=== PATIENT | male | born 1935 ===

== ENCOUNTER 2018-03-01 08:14 | Day surgery (SDC) | payer OTHER ==
[~2018-03-01] VITALS: Ht 172.7 cm; Wt 97.5 kg
[~2018-03-01 08:14] MED LIST: AMLO5 PO; Aspirin EC81 MG PO; HYDCHL25 PO; LISI20 PO
--- NOTE | 2018-03-01 13:14 | NUR ---
PT SITTING IN RECLINER, EATING LUNCH. DENES PAIN OR NEEDS. VSS. CALL LIGHT IN REACH.
--- NOTE | 2018-03-01 14:20 | NUR ---
IV DC'D, CATH INTACT. PT AND SPOUSE HAVE VERBALIZED UNDERSTANDING OF DC INSTRUCTIONS AND FOLLOW UP INFO. RIGHT RADIAL SITE CDI POST TR BAND REMOVAL. SPLINT IN PLACE. PT OUT TO CAR VIA .
== END 2018-03-01 14:20 | disposition home or self-care (01) ==
LOC: MHTC 08:14
PROC: B2111ZZ Fluoroscopy of Multiple Coronary Arteries using Low Osmolar Contrast (ICD-10-PCS; principal; 2018-03-01)
DX: I35.0 Nonrheumatic aortic (valve) stenosis (principal); R07.9 Chest pain, unspecified; Z87.891 Personal history of nicotine dependence; J44.9 Chronic obstructive pulmonary disease, unspecified; I12.9 Hypertensive chronic kidney disease with stage 1 through stage 4 chronic kidney disease, or unspecified chronic kidney disease; N18.9 Chronic kidney disease, unspecified
CPT/HCPCS: 93454; 99152; 99153; C1769; C1894; J1644; J2250; J3010; J7030; J7040; Q9967

== ENCOUNTER 2019-12-16 07:50 | Day surgery (SDC) | payer OTHER, MEDICARE ==
[~2019-12-16] VITALS: Ht 172.7 cm; Wt 89.0 kg
[~2019-12-16 07:50] MED LIST changes: +FINA5 PO; +TERA5 PO
--- NOTE | 2019-12-16 18:46 | NUR ---
PATIENT ARRIVED FROM [facility] VIA BED THIS SHIFT, PATIENT DENIES CHEST PAIN/PRESSURE, ENDORSES MILD SORENESS AT PACEMAKER SURGICAL SITE. PATIENT IS ALERT AND ORIENTED, ON ROOM AIR. PATIENT HYPERTENSIVE AT 193/83, ORDERS GIVEN FOR STARTING ZESTRIL AND NORVASC, BP IMPROVED TO 160S/70S-80S. PATIENT IS PACED IN THE 60S. PLAN IS FOR DISCHARGE TOMORROW IF TOLERATES WELL AND REMOVAL OF PRESSURE DRESSING.
--- NOTE | 2019-12-17 05:40 | NUR ---
SHIFT SUMMARY NO ACUTE CHANGES THIS SHIFT. PT A&OX4. PLEASANT AND COOPERATIVE. SP02>92% ON RA. TELEMETRY READS PACED, HR 60'S-70'S. PACEMAKER SITE LOCATED ON UPPER LEFT CHEST IS WRAPPED IN SAUMYA BANDAGE, C/D/I. NO BLEEDING OR HEMATOMA. PT DENIES CP/PRESSURE. PT AMBULATED TO RESTROOM INDEPENDENTLY MULTIPLE TIMES DURING SHIFT. PT C/O OF HEADACHE, MEDICATED W/ TYLENOL PER EMAR WITH SUCCESSFUL RELIEF. CALL LIGHT IN REACH. WCTM UNTIL END OF SHIFT.
--- NOTE | 2019-12-17 07:35 | NUR ---
ASSUMED PATIENT CARE. PATIENT SLEEPING COMFORTABLY IN BED, NO SIGNS OF ACUTE DISTRESS. R. UPPER CHEST WALL PRESSURE DRESSING IN PLACE, WCTM.
--- NOTE | 2019-12-17 09:49 | NUR ---
PATIENT PROVIDED DISCHARGE INFO REGARDING FOLLOW UP APPOINTMENTS, PACEMAKER SITE CARE, NEW PACEMAKER ACTIVITY RESTRICTIONS, AND REASONS TO RETURN TO THE HOSPITAL. PATIENT VERBALIZED UNDERSTANDING. NO SIGNS OF ACUTE DISTRESS. PRESSURE DRESSING CHANGED OUT TO TEGADERM WITH DRESSING, NO SIGNS OF DISCHARGE.
== END 2019-12-17 10:05 | disposition home or self-care (01) ==
LOC: MHTC 07:50 → PCU 11:03 → MHTC 12-17 10:05
DX: I44.2 Atrioventricular block, complete (principal); Z95.2 Presence of prosthetic heart valve; I12.9 Hypertensive chronic kidney disease with stage 1 through stage 4 chronic kidney disease, or unspecified chronic kidney disease; N18.9 Chronic kidney disease, unspecified; J44.9 Chronic obstructive pulmonary disease, unspecified; R91.8 Other nonspecific abnormal finding of lung field; Z79.899 Other long term (current) drug therapy
CPT/HCPCS: 33208; 71045; 71046; 76937; 99152; 99153; A9270; C1785; C1894; C1898; J0690; J1644; J2250; J3010; J7040; J7050; Q2038